=== PATIENT | male | born 1955 | race Caucasian/White ===

== ENCOUNTER → 2017-08-17 | Outpatient (CLI) | payer OTHER ==
[~2017-08-17] MED LIST: OMNIPAQUE 350 MG/ML, 100ML BOTTLE ONE
== END | disposition home or self-care (01) ==
LOC: CFH 08:46
PROVIDERS: ATTEND Internal Medicine Hematology & Oncology
DX: C7A.098 Malignant carcinoid tumors of other sites (principal); K76.89 Other specified diseases of liver
CPT/HCPCS: 74160; Q9967; 82565

== ENCOUNTER 2017-08-31 07:43 | Day surgery (SDC) | payer OTHER ==
[~2017-08-31] VITALS: Ht 170.2 cm; Wt 79.0 kg
[2017-08-31] MEDS ORDERED: SODIUM CHLORIDE 0.9% 1,000 ML IV SCH (08:17)
[2017-08-31 08:18] VITALS: BP 151/107
[2017-08-31 08:49] VITALS: BP 152/102
[2017-08-31] MEDS ORDERED: FENTANYL PF 100 MCG/2ML ONE (09:26)
[2017-08-31] MEDS ORDERED: MIDAZOLAM 1 MG/ML, 2ML ONE (09:26)
[2017-08-31] MEDS ORDERED: NALOXONE 1 MG/ML, 2ML ONE (09:27)
[2017-08-31] MEDS ORDERED: FLUMAZENIL 0.1 MG/1 ML, 5ML ONE (09:27)
== END 2017-08-31 11:00 ==
LOC: OUT 07:43
PROVIDERS: ATTEND Internal Medicine Hematology & Oncology
DX: C25.9 Malignant neoplasm of pancreas, unspecified (principal); Z98.890 Other specified postprocedural states
CPT/HCPCS: 49180; 77012; 88305; 88341; 88342; 88360; 99156; J2250; J3010; 99157; G0461; J2310

== ENCOUNTER 2018-05-19 09:48 | Emergency (ER) | payer OTHER ==
[~2018-05-19] VITALS: Ht 170.2 cm; Wt 74.8 kg
[2018-05-19 10:25] LABS: MEAN CORPUSCULAR HEMOGLOBIN 34.8 pg (27.5-34.5); MEAN CORPUSCULAR HGB CONC 34.8 g/dL (33.2-36.2); MEAN CORPUSCULAR VOLUME 100.1 fL (81-97); MEAN PLATELET VOLUME 8.8 fL (7.4-10.4); PLATELET COUNT 282 x10^3/uL (130-400); RED BLOOD COUNT 4.86 x10^6/uL (4.38-5.82); RED CELL DISTRIBUTION WIDTH 13.5 % (9.4-14.8)
[2018-05-19] MEDS ORDERED: LACTOSE (10:28)
[2018-05-19] MEDS ORDERED: BETA15CR4 TP (10:28)
[2018-05-19] MEDS ORDERED: LISI-420 PO (10:28)
[2018-05-19] MEDS ORDERED: PROBIOTIC (10:28)
[2018-05-19] MEDS ORDERED: ASPI-496 PO (10:28)
[2018-05-19] MEDS ORDERED: FISH OIL (10:28)
[2018-05-19] MEDS ORDERED: AMLO5TAB7 PO (10:28)
[2018-05-19] MEDS ORDERED: CHLORDIAZEPOXIDE 25 MG CAPSULE PO ONE (10:30)
[2018-05-19] MEDS ORDERED: LORazepam 2 MG/ML, 1ML IM ONE (10:30)
[2018-05-19 10:36] LABS: ALBUMIN 4.4 g/dL (3.4-5.0); ANION GAP 12 mmol/L (5-15); CALCIUM 9.8 mg/dL (8.5-10.1); CHLORIDE 100 mmol/L (98-107); CREATININE 1.02 mg/dL (0.7-1.3)
[2018-05-19 10:42] LABS: ALANINE AMINOTRANSFERASE 128 U/L (12-78); ALKALINE PHOSPHATASE 156 U/L (45-117); BILIRUBIN,TOTAL 0.9 mg/dL (0.2-1.0); TOTAL PROTEIN 7.6 g/dL (6.4-8.2)
[2018-05-19] MEDS ORDERED: LORazepam 2 MG/ML, 1ML ONE (10:49)
[2018-05-19] MEDS ORDERED: CHLORDIAZEPOXIDE 25 MG CAPSULE ONE (10:49)
[2018-05-19 11:03] LABS: MD YES
[2018-05-19 11:26] VITALS: BP 133/89
[2018-05-19 11:34] LABS: <PLATELET ESTIMATE> ADEQUATE; <PLT MORPHOLOGY> NORMAL PLT MORPH; BAND#(MANUAL) 0.31 x10^3/uL; BANDS%(MANUAL) 3 % (0-7); BASOS% (MANUAL) 1 % (0-1); LYMPH#(MANUAL) 0.61 x10^3/uL (1-3.4); LYMPHS% (MANUAL) 6 % (22-44); MONOS#(MANUAL) 1.22 x10^3/uL (0.3-2.7); MONOS% (MANUAL) 12 % (2-9); SEG#(MANUAL) 7.96 x10^3/uL (1.8-6.8); SEGS% (MANUAL) 78 % (42-75)
== END 2018-05-19 11:44 | disposition home or self-care (01) ==
LOC: ED 10:44
DX: I10 Essential (primary) hypertension (principal); F10.239 Alcohol dependence with withdrawal, unspecified
CPT/HCPCS: 36415; 80053; 80307; 83735; 85025; 96372; 99284; J2060

== ENCOUNTER → 2018-07-11 | Outpatient (CLI) | payer OTHER ==
[~2018-07-11] MED LIST changes: +AMLO-150 PO; +ASPI-496 PO; +BETA15CR4 TP; +FISH OIL; +LACTOSE; +LISI-420 PO; +PROBIOTIC
== END | disposition home or self-care (01) ==
LOC: CFH 12:09
PROVIDERS: ATTEND Internal Medicine Hematology & Oncology
DX: K76.89 Other specified diseases of liver (principal); C25.4 Malignant neoplasm of endocrine pancreas; C7A.098 Malignant carcinoid tumors of other sites; R19.09 Other intra-abdominal and pelvic swelling, mass and lump
CPT/HCPCS: 74160; Q9967

== ENCOUNTER → 2018-11-13 | Outpatient (CLI) | payer OTHER | END | disposition home or self-care (01) | LOC: CFH 07:50 | PROVIDERS: ATTEND Internal Medicine Hematology & Oncology | DX: C25.4 Malignant neoplasm of endocrine pancreas (principal); C7A.098 Malignant carcinoid tumors of other sites; K76.0 Fatty (change of) liver, not elsewhere classified; K86.9 Disease of pancreas, unspecified; K76.9 Liver disease, unspecified; Q44.6 Cystic disease of liver; M43.06 Spondylolysis, lumbar region; R59.1 Generalized enlarged lymph nodes; R16.0 Hepatomegaly, not elsewhere classified; R91.1 Solitary pulmonary nodule | CPT/HCPCS: 71260; 74177; Q9967 ==

== ENCOUNTER → 2018-11-29 | Outpatient (CLI) | payer OTHER ==
[~2018-11-29] MED LIST changes: -OMNIPAQUE 350 MG/ML, 100ML BOTTLE ONE
== END | disposition home or self-care (01) ==
LOC: ROC 07:14
PROVIDERS: ATTEND Radiology Radiation Oncology
DX: Z08 Encounter for follow-up examination after completed treatment for malignant neoplasm (principal); J45.909 Unspecified asthma, uncomplicated; I10 Essential (primary) hypertension; Z85.07 Personal history of malignant neoplasm of pancreas; Z91.011 Allergy to milk products
CPT/HCPCS: 99214; G0463

== ENCOUNTER 2018-12-12 10:00 | Day surgery (SDC) | payer OTHER ==
[~2018-12-12] VITALS: Ht 170.2 cm; Wt 81.0 kg
[2018-12-12 10:30] VITALS: BP 145/90
[2018-12-12] MEDS ORDERED: FENTANYL PF 100 MCG/2ML ONE ×2 (10:54)
[2018-12-12] MEDS ORDERED: MIDAZOLAM 1 MG/ML, 5ML ONE (10:55)
[2018-12-12] MEDS ORDERED: FLUMAZENIL 0.1 MG/1 ML, 5ML ONE (10:55)
[2018-12-12] MEDS ORDERED: NALOXONE 1 MG/ML, 2ML ONE (10:55)
[2018-12-12] MEDS ORDERED: SODIUM CHLORIDE 0.9% 1,000 ML IV SCH (11:00)
== END 2018-12-12 13:10 | disposition home or self-care (01) ==
LOC: RAD 10:00 → OUT 13:10
PROVIDERS: ATTEND Radiology Radiation Oncology
DX: C25.4 Malignant neoplasm of endocrine pancreas (principal); C77.2 Secondary and unspecified malignant neoplasm of intra-abdominal lymph nodes; I10 Essential (primary) hypertension; G47.30 Sleep apnea, unspecified; J45.909 Unspecified asthma, uncomplicated; Z79.899 Other long term (current) drug therapy; Z72.89 Other problems related to lifestyle; Z91.011 Allergy to milk products; Z90.411 Acquired partial absence of pancreas; Z90.81 Acquired absence of spleen; Z98.890 Other specified postprocedural states; Z82.49 Family history of ischemic heart disease and other diseases of the circulatory system; Z80.3 Family history of malignant neoplasm of breast; Z80.0 Family history of malignant neoplasm of digestive organs
CPT/HCPCS: 49411; 77014; 99156; 99157; J2250; J3010; J7030; J2310

== ENCOUNTER → 2019-08-19 | Outpatient (CLI) | payer MEDICARE, OTHER ==
[~2019-08-19] MED LIST changes: +OMNIPAQUE 350 MG/ML, 100ML BOTTLE ONE
== END | disposition home or self-care (01) ==
LOC: CFH 08:38
PROVIDERS: ATTEND Radiology Radiation Oncology
DX: C77.2 Secondary and unspecified malignant neoplasm of intra-abdominal lymph nodes (principal); Z90.49 Acquired absence of other specified parts of digestive tract
CPT/HCPCS: 74177; Q9967

== ENCOUNTER 2019-08-21 10:00 | Outpatient (CLI) | payer MEDICARE, OTHER ==
[~2019-08-21 10:00] MED LIST changes: -OMNIPAQUE 350 MG/ML, 100ML BOTTLE ONE
== END 2019-08-21 23:59 | disposition home or self-care (01) ==
LOC: ROC 10:00
PROVIDERS: ATTEND Radiology Radiation Oncology
DX: C77.2 Secondary and unspecified malignant neoplasm of intra-abdominal lymph nodes (principal); C7A.8 Other malignant neuroendocrine tumors; Z90.49 Acquired absence of other specified parts of digestive tract
CPT/HCPCS: G0463